=== PATIENT | male | born 1960 | race Caucasian/White ===

== ENCOUNTER 2018-03-05 15:02 | Emergency (ER) | payer MEDICAID, OTHER ==
[2018-03-05] MEDS: LIDOCAINE 1% (MDV) 20 ML INJ IM (16:42)
[2018-03-05] MEDS: LIDOCAINE 2% (MDV) 20 ML INJ INJ (16:42)
[2018-03-05] MEDS: DIPHTH/TET/ACEL PERTUSS (ADULT) 0.5 ML VIAL IM* (16:44)
[2018-03-05] MEDS: ONDANSETRON (ODT) 4 MG TAB ODT (16:44)
[2018-03-05] MEDS: HYDROCODONE/APAP (5/325) TAB PO (16:45)
[2018-03-05] MEDS: CEFAZOLIN 1 GM INJ IM (18:46)
== END 2018-03-05 19:37 | disposition home or self-care (01) ==
LOC: FTE 15:02
DX: S61.315A Laceration without foreign body of left ring finger with damage to nail, initial encounter (principal); S62.635B Displaced fracture of distal phalanx of left ring finger, initial encounter for open fracture; W23.1XXA Caught, crushed, jammed, or pinched between stationary objects, initial encounter; Y92.89 Other specified places as the place of occurrence of the external cause; Z23 Encounter for immunization
CPT/HCPCS: 29130; 73130-LT; 90471; 90715; 96372; 99284-25